=== PATIENT | male | born 2000 | race Two or more races ===

== ENCOUNTER → 2024-12-18 | Outpatient (CLI) | payer BC, SELFPAY ==
[2024-12-18 09:18] LABS: Basophils % (Auto) 1 % (0-2.5); Eosinophils # (Auto) 0.2 Thou/mm3 (0.0-0.5); Eosinophils % (Auto) 3 % (0-10); Hematocrit 46.1 % (41.0-53.0); Hemoglobin 15.6 g/dL (13.5-16.0); Immature Granulocytes % (Auto) 0 % (0-0); Immature Granulocytes Auto 0.02 Thou/mm3 (0.00-0.00); Lymphocytes # (Auto) 2.4 Thou/mm3 (1.0-4.8); Lymphocytes % (Auto) 37 % (10-50); Mean Corpuscular HGB Conc 33.8 g/dl (31.0-37.0); Mean Corpuscular Hemoglobin 31.1 pg (25.0-35.0); Mean Corpuscular Volume 92 fL (80-100); Monocytes # (Auto) 0.5 Thou/mm3 (0.0-0.8); Monocytes % (Auto) 8 % (0-12); Neutrophils # (Auto) 3.3 Thou/mm3 (1.8-7.7); Neutrophils % (Auto) 51 % (37-80); Nucleated Red Blood Cell % 0 /100 WBC (0); Platelet Count 224 Thou/mm3 (140-440); RDW Standard Deviation 42.1 fL (35.1-43.9); Red Blood Count 5.02 Miln/mm3 (4.50-5.90); White Blood Count 6.4 Thou/mm3 (3.8-10.6)
[2024-12-18 09:24] LABS: Glucose Estimated Average 108 mg/dL (80-131); Hemoglobin A1C 5.4 % Hgb (4.8-6.0)
[2024-12-18 09:34] LABS: Alanine Aminotransferase 20 U/L (10-49); Albumin/Globulin Ratio 2.1 (1.2-2.2); Alkaline Phosphatase 89 U/L (46-116); Anion Gap 5 (7-16); Aspartate Amino Transferase 16 U/L (0-34); BUN/Creatinine Ratio 14 Ratio (12-20); Bilirubin,Total 0.5 mg/dL (0.3-1.2); Blood Urea Nitrogen 14 mg/dL (9-23); Calcium 10.1 mg/dL (8.3-10.6); Calcium (Corrected) 10.1 mg/dL (8.5-10.1); Carbon Dioxide 30.2 mMol/L (20.0-31.0); Cardiac Risk Estimate 2.3 RATIO (4.0-6.7); Chloride 106 mMol/L (98-107); Cholesterol 149 mg/dL (132-200); Globulin 2.4 gm/dL (2.3-3.5); Glucose 93 mg/dL (74-106); HDL Cholesterol 64 mg/dL (40-60); LDL Cholesterol,Calculated 73 mg/dL (0-130); Osmolality,Calculated 281 (275-295); Potassium 4.2 mMol/L (3.4-5.1); Sodium 141 mMol/L (136-145); T4 (Thyroxine) 7.3 mcg/dL (4.5-10.9); Thyroid Stimulating Hormone 1.51 uIU/mL (0.55-4.78); Total Protein 7.4 gm/dL (5.7-8.2); Triglycerides 58 mg/dL (30-150); eGFR > 60 See Note
== END | disposition home or self-care (01) ==
LOC: COPL 08:18
PROVIDERS: PCP Family Medicine; Referring Provider Family Medicine; Visit Provider Family Medicine
DX: B00.2 Herpesviral gingivostomatitis and pharyngotonsillitis (principal); R79.9 Abnormal finding of blood chemistry, unspecified
CPT/HCPCS: 36415; 80053; 80061; 83036; 84436; 84443; 85025

== ENCOUNTER 2025-04-19 15:29 | Emergency (ER) | payer BC, SELFPAY ==
[2025-04-19 15:33] VITALS: BMI 19.0
[2025-04-19 15:34] VITALS: BP 136/98; PULSE 100; RESP 18; TEMP 37.2; O2SAT 97; BMI 19.0
--- NOTE | 2025-04-19 16:16 | XR_ITS ---
Examination: Cervical spine 3 views TECHNIQUE: AP lateral coned AP odontoid cervical spine 3 views INDICATIONS: Hanging incident one hour ago Date and time: April 19, 2025 1624 hours FINDINGS: Satisfactory alignment cervical vertebral bodies. No cervical fracture. Intact odontoid. No cervical disc narrowing. The hyoid bone appears intact. Epiglottis is not thickened. No significant prevertebral soft tissue prominence IMPRESSION: No cervical fracture
--- NOTE | 2025-04-19 16:17 | EDNOTE_ITS ---
<Statement entered by Rebecca Castillo MD - 04/20/25 03:41> As co-signing physician, I was present and available for consult prn. I concur with the plan and care as documented by the midlevel provider. ED Psych RME/HPI General Chief Complaint: Psychiatric Symptoms Stated Complaint: 5150 HOLD Time Seen by Provider: 04/19/25 16:16 Arrival date/time: 04/19/25 15:29 RME / HPI RME / HPI Narrative: 25-year-old male patient came in for evaluation regarding suicidal attempts. Patient apparently is doing cocaine on a daily basis, several times a day, and today he decided to kill himself by hanging, a girlfriend stop it and call law enforcement. Currently patient in 5150 hold. Patient denies any homicidal ideation. Patient told me that he has been depressed for a while now. Currently not taking any medication. Related Data Allergies Allergy/AdvReac Type Severity Reaction Status Date / Time No Known Allergies Allergy Verified 07/11/22 19:34 Review of Systems Review of Systems Narrative Review of Systems: Review of system reviewed and within normal limits except mentioned in HPI ED Exam Narrative Physical exam: VITAL SIGNS: Reviewed. GENERAL APPEARANCE: Alert and interactive, follows commands, no acute distress, HEAD AND FACE: Non-traumatic. ENT: PERRL, pink conjunctivitis, eyelid no trauma, Mucous membrane moist. NECK: Supple, nontender, no nuchal rigidity. Abrasion noted on the anterior lateral aspect of the neck CHEST: No tenderness, no crepitus, no paradoxical movement, no retractions. LUNGS: Clear, well ventilated, symmetric, no rales, no wheezing, no ronchi, no stridor, good breath sounds bilaterally. HEART: Regular rate, regular rhythm, no murmur, no gallops. ABDOMEN: Soft, positive bowel sounds, nondistended, no guarding, nontender, no rebound, no masses, RECTAL: Deferred. GENITAL: Deferred. NEUROLOGICAL: Gross motor function intact sensory function intact, Appropriate for age. MUSCULOSKELETAL: low back nontender, full range of motion. EXTREMITIES: Nontender, full range of motion. SKIN: Color pink, dry, no rash, no lacerations, no abrasions, no contusions. LYMPHATICS: Deferred. Course Quality Measures none Orders Category Date Time Status XR cervical spine 2-3V Stat Exams 04/19/25 16:16 Completed Acetaminophen Stat Lab 04/19/25 16:46 Completed Alcohol, Blood Medical Stat Lab 04/19/25 16:46 Completed Basic Metabolic Panel Stat Lab 04/19/25 16:46 Completed CBC Stat Lab 04/19/25 16:46 Completed Drug Screen,Urine Stat Lab 04/19/25 16:17 Ordered Salicylate Stat Lab 04/19/25 16:46 Completed Urinalysis Stat Lab 04/19/25 16:16 Ordered Vital Signs Vital signs: Vital Signs Temperature 98.9 F 04/19/25 15:34 Pulse Rate 100 04/19/25 15:34 Respiratory Rate 18 04/19/25 15:34 Blood Pressure 136/98 H 04/19/25 15:34 Pulse Oximetry (%) 97 04/19/25 15:34 Oxygen Delivery Method Room Air 04/19/25 15:34 Psych MDM Narrative MDM Narrative:: 25-year-old male patient came in for evaluation regarding suicidal attempts. Patient apparently is doing cocaine on a daily basis, several times a day, and today he decided to kill himself by hanging, a girlfriend stop it and call law enforcement. Currently patient in 5150 hold. Patient denies any homicidal ideation. Patient told me that he has been depressed for a while now. Currently not taking any medication. Patient is medically cleared for crisis intervention Patient's workup today all came back unremarkable. Patient was accepted in [facility] Patient data External records reviewed:: None Clinical information provided by:: patient Social determinants that could affect healthcare access:: substance use Patient has the following chronic illnesses:: None How is presenting disease/condition affected by chronic disease/condition?: no chronic disease Evaluation data The following diagnostics were reviewed and interpreted by me:: lab results and radiology exam(s) Lab and/or radiology exams considered but not ordered:: None Interpretation Summary: See results in MDM Medications / Prescriptions Medications or Prescriptions considered but not ordered:: None Medication administrations:: None Consultations Consultation(s) initiated? (list below): No Diagnosis Psych Differential Diagnosis: acute psychosis, suicidal ideation, depression and drug-induced psychotic disorder Most likely diagnosis given after review of the tests above:: Suicidal attempts Admission Indicated Admission indicated?: indicated Admission Request Was there a request for admission?: No Disposition Plan Disposition Plan: Transfer Discharge Plan Plan Patient Disposition: [facility] Prescriptions/Referrals Referrals: Maureen Antunez MD [Primary Care Provider] - In 1 week Problem List Clinical Impression: Attempted suicide, Drug-induced psychotic disorder Patient/Caregiver Discharge Instructions Print Language: Polish Stand Alone Forms: Saskia Award Info., Patient Portal Info Letter
[2025-04-19 16:59] LABS: Basophils % (Auto) 0 % (0-2.5); Eosinophils # (Auto) 0.1 Thou/mm3 (0.0-0.5); Eosinophils % (Auto) 1 % (0-10); Hematocrit 44.9 % (41.0-53.0); Immature Granulocytes % (Auto) 0 % (0-0); Immature Granulocytes Auto 0.01 Thou/mm3 (0.00-0.00); Lymphocytes # (Auto) 1.4 Thou/mm3 (1.0-4.8); Lymphocytes % (Auto) 25 % (10-50); Mean Corpuscular HGB Conc 35.6 g/dl (31.0-37.0); Mean Corpuscular Hemoglobin 31.9 pg (25.0-35.0); Mean Corpuscular Volume 89 fL (80-100); Monocytes # (Auto) 0.6 Thou/mm3 (0.0-0.8); Monocytes % (Auto) 11 % (0-12); Neutrophils # (Auto) 3.5 Thou/mm3 (1.8-7.7); Neutrophils % (Auto) 63 % (37-80); Nucleated Red Blood Cell % 0 /100 WBC (0); Platelet Count 196 Thou/mm3 (140-440); RDW Standard Deviation 41.1 fL (35.1-43.9); Red Blood Count 5.02 Miln/mm3 (4.50-5.90); White Blood Count 5.6 Thou/mm3 (3.8-10.6)
[2025-04-19 17:21] LABS: Acetaminophen < 2.0 mcg/mL (10.0-20.0); Alcohol, Blood Medical < 10.0 mg/dL (0-10.0); Anion Gap 9 (7-16); BUN/Creatinine Ratio 11 Ratio (12-20); Blood Urea Nitrogen 13 mg/dL (9-23); Calcium 9.7 mg/dL (8.3-10.6); Carbon Dioxide 28.3 mMol/L (20.0-31.0); Chloride 104 mMol/L (98-107); Creatinine (Component) 1.2 mg/dL (0.6-1.3); Estimated Creatinine Clearance 74.2 mL/min (>60); Glucose 73 mg/dL (74-106); Osmolality,Calculated 280 (275-295); Potassium 4.2 mMol/L (3.4-5.1); Salicylate < 3.0 mg/dL; Sodium 141 mMol/L (136-145); eGFR > 60 See Note
--- NOTE | 2025-04-19 17:45 | PC.CC ---
Patient is 25 year-old male who was [facility] Education Sales Consultant Fredi on a 5150-Hold for Danger to Self after attempting to hang himself with a rope. It was reported by Officer Fredi that patient was found by his girlfriend, Mary Dang . Police report incident provided by Officer Fredi [id number]. n ASWDena and REFERENCE SERVICES HEAD Student, Maria Elena made face to face contact with patient introduced selves, roles, and reason for visit. Patient provided consent for REFERENCE SERVICES HEAD Student to remain in the room during assessment. Patient presents as alert and oriented to self, location, and situation. ASW disclosed limits of confidentiality as well. Patient made little eye contact and looked away from this freelance copywriter. Patient?s mood appeared to be depressed with a flat affect and disinhibited. Patient?s thought process was linear and organized. No signs of delusions, paranoid or V/h. Patient reports he is depressed and feels like him killing himself would benefit everyone else around him. Patient stated, ?All I have ever been is an addict.? Patient reports he had been using cocaine for the past 9 years 3-4x/day. Patient disclosed that today he began to have suicidal ideations with plan and intention of killing himself. Patient reports he used a rope to hang himself from the ceiling fan and his girlfriend came home and found him. Patient reports he does not have any mental health diagnosis and is not connect to outpatient mental health services. Patient reports today was his first suicide attempt. At the time of encounter patient continues to endorse suicidal ideations. Patient denied homicidal ideations; visual and auditory hallucinations. Patient reports he has never been on a 5150-hold in the past. Patient reports he is ambulatory and is able to complete his own ADLs. ASW explored with patient is contact could be made with girlfriend for collateral information and patient responded, ?No.? Upon clinical consultation with TRIAGE NURSEZahida patient?s 5150-hold will be upheld for Danger to Self. Patient was provided with 5150-hold advisement and patient?s rights handbook. ASW provided update of discharge plan to [facility] to Dr. Jimenez, RAUL Laurent, wearing apparel presser [place], and bedside RN Toni. ASW to send referral packet to [facility] via [employer].
--- NOTE | 2025-04-19 18:13 | PC.CC ---
Patient was accepted to [facility], Dr. Goyal, [address]. Accepting information was provided Yvonne. ASW provided accepting information to patient. ASW provided update to RAUL Norris, bedside RN, and pharmacist in charge [place]. ASW to arrange transportation with [facility].
[2025-04-19 18:48] VITALS: BP 125/90; PULSE 60; RESP 17; TEMP 36.6; O2SAT 100
== END 2025-04-19 19:25 ==
PROVIDERS: Nurse Practitioner Family; Emergency Provider Emergency Medicine; PCP Family Medicine
DX: Z04.6 Encounter for general psychiatric examination, requested by authority (principal); T14.91XA Suicide attempt, initial encounter; F14.959 Cocaine use, unspecified with cocaine-induced psychotic disorder, unspecified; X83.8XXA Intentional self-harm by other specified means, initial encounter
CPT/HCPCS: 36415; 72040; 80048; 80307; 80320; 80329; 81001; 85025; 96127; 99285; G0480

== ENCOUNTER 2025-08-18 15:05 | Emergency (ER) | payer BC, SELFPAY ==
[2025-08-18 16:06] VITALS: BP 147/90; PULSE 96; RESP 20; TEMP 36.8; O2SAT 100; BMI 19.0
--- NOTE | 2025-08-18 16:18 | XR_ITS ---
Examination: CT abdomen with intravenous contrast CT pelvis with intravenous contrast 2-D coronal reconstructions 2-D sagittal reconstructions Date and time of exam: August 18, 2025, 2032 hours INDICATIONS: Mid abdominal pain nausea vomiting beginning 3 days ago, history kidney stones 07/11/2021 exam. CTDI: vol (mGy) 4.44 DLP: (mGycm) 220 Technique: Multiple axial sections of the abdomen and pelvis have been obtained. 64 slice high-resolution scanner used. 3 mm axial sections have been obtained, post intravenous injection 60 cc [id number] 2-D sagittal, coronal reconstructions obtained. Low dose protocols were performed. One or more of the following dose reduction techniques were used; automated exposure control, adjustment of the mA and/or KV according to patient size, use of iterative reconstruction technique. Findings: No focal liver or splenic lesions Hepatomegaly 18 cm No gallstones No pancreatic mass 2 mm right renal calculus image 71 No hydronephrosis or ureteral calculi Aorta normal size Normal appendix No bowel obstruction Intact urinary bladder No prostatomegaly IMPRESSION: Hepatomegaly 18 cm 2 mm nonobstructing right renal calculus Normal appendix No bowel obstruction
[2025-08-18 16:45] LABS: Basophils # (Auto) 0.0 Thou/mm3 (0.0-0.2); Basophils % (Auto) 0 % (0-2.5); Eosinophils # (Auto) 0.0 Thou/mm3 (0.0-0.5); Eosinophils % (Auto) 0 % (0-10); Hematocrit 44.5 % (41.0-53.0); Hemoglobin 15.1 g/dL (13.5-16.0); Immature Granulocytes Auto 0.04 Thou/mm3 (0.00-0.00); Lymphocytes # (Auto) 1.1 Thou/mm3 (1.0-4.8); Lymphocytes % (Auto) 9 % (10-50); Mean Corpuscular HGB Conc 33.9 g/dl (31.0-37.0); Mean Corpuscular Hemoglobin 30.9 pg (25.0-35.0); Mean Corpuscular Volume 91 fL (80-100); Monocytes # (Auto) 1.3 Thou/mm3 (0.0-0.8); Monocytes % (Auto) 11 % (0-12); Neutrophils # (Auto) 9.6 Thou/mm3 (1.8-7.7); Neutrophils % (Auto) 80 % (37-80); Nucleated Red Blood Cell # 0.00 Thou/mm3 (0.00-0.00); Nucleated Red Blood Cell % 0 /100 WBC (0); Platelet Count 202 Thou/mm3 (140-440); RDW Standard Deviation 40.6 fL (35.1-43.9); Red Blood Count 4.88 Miln/mm3 (4.50-5.90); White Blood Count 12.0 Thou/mm3 (3.8-10.6)
[2025-08-18 17:00] LABS: Alanine Aminotransferase 17 U/L (10-49); Albumin, Serum 5.0 gm/dL (3.5-5.0); Albumin/Globulin Ratio 1.9 (1.2-2.2); Alkaline Phosphatase 73 U/L (46-116); Anion Gap 11 (7-16); Aspartate Amino Transferase 16 U/L (0-34); BUN/Creatinine Ratio 7 Ratio (12-20); Bilirubin,Total 0.5 mg/dL (0.3-1.2); Blood Urea Nitrogen 7 mg/dL (9-23); Calcium 9.4 mg/dL (8.3-10.6); Calcium (Corrected) 9.4 mg/dL (8.5-10.1); Carbon Dioxide 25.2 mMol/L (20.0-31.0); Chloride 103 mMol/L (98-107); Creatinine (Component) 1.0 mg/dL (0.6-1.3); Estimated Creatinine Clearance 89.0 mL/min (>60); Globulin 2.7 gm/dL (2.3-3.5); Glucose 101 mg/dL (74-106); Lipase 30 U/L (12-53); Osmolality,Calculated 275 (275-295); Potassium 3.7 mMol/L (3.4-5.1); Sodium 139 mMol/L (136-145); Total Protein 7.7 gm/dL (5.7-8.2); eGFR > 60 See Note
[2025-08-18 17:00] LABS: Collection Type, Urine Voided; Squamous Epithelial Cell,Urine 0 /hpf (0-5)
[2025-08-18 17:24] LABS: Bilirubin,Urine Negative (Negative); Blood,Urine Negative (Negative); Clarity,Urine Clear (Clear/Hazy); Color,Urine Lt-Yellow (Lt Yel-Yel); Culture Indicated,Urine Not Indicated; Glucose, Urine Negative (Negative); Ketones,Urine Negative (Negative); Leukocyte Esterase,Urine Negative (Negative); Nitrite,Urine Negative (Negative); PH,Urine 6.5 (5.0-7.0); Protein,Urine Negative (Neg - Trace); RBC,Urine 2 /hpf (0-3); Specific Gravity,Urine 1.021 (1.001-1.035); Urobilinogen,Urine Negative mg/dL (0.0-1.0); WBC,Urine 1 /hpf (0-5)
--- NOTE | 2025-08-18 20:21 | PD.EDABDPN ---
ED Abdominal Pain RME/HPI General Chief Complaint: Abdominal Pain Stated complaint: SHARP ABD PAIN Time seen by provider: 08/18/25 16:11 Arrival date/time: 08/18/25 15:05 RME / HPI RME / HPI narrative: Dr. Cooley?s Main ED Evaluation: 25yo male with ongoing periumbilical pain x 2-3 days that is described as sharp and stabbing in nature. Pain tends to worsen with PO intake. No fever, but positive chills. No vomiting, diarrhea, frequency, urgency, or dysuria. PMH includes asthma. PSH unremarkable. Positive alcohol, tobacco, and cocaine use. Related Data Previous Rx's ?Medication ?Instructions ?Recorded magnesium hydroxide 400 mg/5 mL 15 ml PO BID PRN constipation #355 08/18/25 oral suspension (Milk of Magnesia) mL Allergies Allergy/AdvReac Type Severity Reaction Status Date / Time No Known Allergies Allergy Verified 08/18/25 15:08 Review of Systems Review of Systems Systems Reviewed: All systems reviewed, normal except as documented Past Medical History Past Medical History CARDIAC: Negative Congestive Heart Failure RESPIRATORY: Positive Asthma; Negative Chronic Obstructive Pulmonary Disease (COPD) GENITOURINARY: Negative Renal Disease ENDOCRINE: Negative Diabetes Mellitus Type 1 or Diabetes Mellitus Type 2 HEMATOLOGIC: Negative Sickle Cell Disease PSYCHO/SOCIAL: Positive Recreational Drug Use and Depression Social History SMOKING STATUS: Current every day smoker ED Exam Narrative Physical exam: GENERAL APPEARANCE: alert and oriented x 4, well-developed, well-nourished, nontoxic, complains of abdominal pain, no acute distress VITALS: All vitals were reviewed and the pulse ox is 100% on room air, which is normal according to my interpretation. HEENT: Normocephalic, atraumatic; pupils equal, round, reactive to light; EOMI; mucous membranes pink, moist; oropharynx clear NECK: Supple LUNGS: CTABL; no wheezes, no rales, no rhonchi HEART: Regular rate, regular rhythm; normal S1, S2; no murmurs ABDOMEN: non distended; soft, tenderness to the periumbilical and epigastric regions, no discrete peritoneal findings, ?subcutanous emphysema EXTREMITIES: atraumatic; no edema NEUROLOGIC: awake; alert and oriented x4; cranial nerves II-XII grossly intact; no focal sensory or motor deficits PSYCHIATRIC: appropriate mood and affect SKIN: warm, dry, normal color; no rashes Course Quality Measures none Orders Category Date Time Status CT Screening NOW Care 08/18/25 16:[address] abdomen pelvis w con Stat Exams 08/18/25 16:18 Completed CBC Stat Lab 08/18/25 16:32 Completed CMP [Comprehensive Metabolic Panel] Stat Lab 08/18/25 16:32 Completed Lipase Stat Lab 08/18/25 16:32 Completed UA, C/S IF [Urinalysis, C/S if Indicated] Stat Lab 08/18/25 16:50 Completed Vital Signs Vital signs: Vital Signs Temperature 98.3 F 08/18/25 16:06 Pulse Rate 96 08/18/25 16:06 Respiratory Rate 20 08/18/25 16:06 Blood Pressure 147/90 H 08/18/25 16:06 Pulse Oximetry (%) 100 08/18/25 16:06 Oxygen Delivery Method Room Air 08/18/25 16:06 Abdominal Pain MDM MDM Narrative MDM Narrative:: Scribe Attestation: 08/18/25 Carmella Ramirez am scribing for and in the presence of Dr. Cooley. 25yo male with ongoing periumbilical pain x 2-3 days that is described as sharp and stabbing in nature. Pain tends to worsen with PO intake. Please see PE findings. Lab markers demonstrate marginally elevated WBC count, no left shift or bandemia. Chemistries are unremarkable. Patient underwent routine CT abdomen pelvis, which showed no acute process. On serial re-evaluation, patient is resting comfortably, reports complete resolution of pain, and abdominal exam is benign. Patient considered stable for discharge. Recommend clear liquid diet for the next 24 hours and taking a mild laxative. Dx: abdominal pain of unclear etiology Patient data External records reviewed:: [facility] previous records (Per chart review, patient has no relevant previous ED visits.) Clinical information provided by:: patient Social determinants that could affect healthcare access:: substance use Patient has the following chronic illnesses:: asthma How is presenting disease/condition affected by chronic disease/condition?: uneffected by Evaluation data The following diagnostics were reviewed and interpreted by me:: lab results and radiology exam(s) Lab and/or radiology exams considered but not ordered:: none Interpretation Summary: [facility] Report Signed Patient: RUBENS ROMERO [facility] Record#: [id number] Birthdate: 2000 Age/Sex: 25 / M Location: [facility] Attending Dr: Ordering Physician: Barry Greer PA-C Date of Service: 08/18/25 Procedure(s): CT abdomen pelvis w con Accession Number(s): [id number] cc: Donta Barlow MD; Maureen Antunez MD; Barry Greer PA-C~ Examination: CT abdomen with intravenous contrast CT pelvis with intravenous contrast 2-D coronal reconstructions 2-D sagittal reconstructions Date and time of exam: August 18, 2025, 2032 hours INDICATIONS: Mid abdominal pain nausea vomiting beginning 3 days ago, history kidney stones 07/11/2021 exam. CTDI: vol (mGy) 4.44 DLP: (mGycm) 220 Technique: Multiple axial sections of the abdomen and pelvis have been obtained. 64 slice high-resolution scanner used. 3 mm axial sections have been obtained, post intravenous injection 60 cc [id number] 2-D sagittal, coronal reconstructions obtained. Low dose protocols were performed. One or more of the following dose reduction techniques were used; automated exposure control, adjustment of the mA and/or KV according to patient size, use of iterative reconstruction technique. Findings: No focal liver or splenic lesions Hepatomegaly 18 cm No gallstones No pancreatic mass 2 mm right renal calculus image 71 No hydronephrosis or ureteral calculi Aorta normal size Normal appendix No bowel obstruction Intact urinary bladder No prostatomegaly IMPRESSION: Hepatomegaly 18 cm 2 mm nonobstructing right renal calculus Normal appendix No bowel obstruction Dictated By: Donta Barlow MD Signed By: <Electronically signed by Donta Barlow MD in OV> 08/18/252058 Medications / Prescriptions Medications or Prescriptions considered but not ordered:: none Medication administrations:: see above Consultations Consultation(s) initiated? (list below): No Diagnosis Differential diagnosis abdominal pain: abdominal pain, acute appendicitis, calculus of kidney, constipation, diverticulitis, endometriosis, gastroenteritis and pancreatitis Most likely diagnosis given after review of the tests above:: see clinical impression below Admission Indicated Admission indicated?: not indicated Admission Request Was there a request for admission?: No Disposition Plan Disposition Plan: Discharge Discharge Attestation Discharge Attestation: The patient and all family members were given an opportunity to ask questions and understood the discharge instructions. Discharge instructions specifically effects, indications for sooner follow up or return to the emergency department, and the expected course of current diagnosis. Patient condition: Stable Discharge Plan Plan Patient Disposition: HOME (Self Care) Discharge Disposition comment: Stable Prescriptions/Referrals Prescriptions/Med Rec: New magnesium hydroxide [Milk of Magnesia] 400 mg/5 mL suspension 15 ml PO BID PRN (Reason: constipation) Qty: 355 0RF Referrals: Maureen Antunez MD [Primary Care Provider, Family Practice] - In 1 week Problem List Clinical Impression: Abdominal pain of unknown etiology Impression comment: Abdominal pain of unclear etiology Patient/Caregiver Discharge Instructions Discharge Activity: activity as tolerated Diet Instructions: Clear liquids x 24 hours and increase as tolerated. Education Materials: Abdominal Pain Additional Instructions: Clear liquids x 24 hours and advance as tolerated. Avoid hot and spicy foods F/U with primary care doctor in 3 to 5 days return if worsening. Print Language: Nigerien Stand Alone Forms: Saskia Award Info., Patient Portal Info Letter
[2025-08-18 21:40] VITALS: BP 122/83; PULSE 68; RESP 18; TEMP 36.8; O2SAT 99
== END 2025-08-18 21:53 | disposition home or self-care (01) ==
PROVIDERS: Physician Assistant; Emergency Provider Emergency Medicine; PCP Family Medicine
DX: R10.9 Unspecified abdominal pain (principal); F14.90 Cocaine use, unspecified, uncomplicated; J45.909 Unspecified asthma, uncomplicated
CPT/HCPCS: 36415; 74177; 80053; 81001; 83690; 85025; 99283; A4649; Q9967